=== PATIENT | female | born 1975 | race Caucasian/White ===

== ENCOUNTER 2016-09-24 16:15 | Emergency (ER) | payer SELFPAY ==
[~2016-09-24] VITALS: Ht 160 cm; Wt 64.0 kg
[~2016-09-24 16:15] MED LIST: NAPR500 PO; NAPR550 PO
[2016-09-24 16:16] VITALS: BP 144/82; PULSE 74; RESP 20; TEMP 97.4; O2SAT 100
--- NOTE | 2016-09-24 18:09 | PD ---
HPI Chief Complaint: Abdominal Pain Time Seen by Provider: 18:04 Travel History International Travel<30 days: No Contact w/Intl Traveler<30days: No Traveled to known affect area: No History of Present Illness HPI Patient is a 41-year-old female presenting to emergency for evaluation of abdominal pain. Patient rates her pain an 8 out of 10 and she also states she feels bloated and gassy. Patient is Serbian-speaking mainly, her is interpreting for her. Formal interpreter deaf services offered, will interpret at this time. Patient denies any nausea, vomiting, fever, chills. She does report loose stools. Patient is a past medical history of rectal bleeding. Patient's history also includes gallstones, upper and lower endoscopy. Patient was placed on omeprazole after the endoscopy last year, she ran out last month. This abdominal pain that she is experiencing today has been intermittent for the last year however it's worse over the last several days. PFSH Past Medical History GERD: Yes ?: Not LMP: 09/24/2016 : 4 Para: 4 Social History Alcohol Use: No Tobacco Use: No Substance Use: No Allergies-Medications (Allergen,Severity, Reaction): Coded Allergies: No Known Allergies (Verified , 09/24/16) Reported Meds & Prescriptions Reported Meds & Active Scripts Active Tylenol-Codeine #3 (Acetaminophen-Codeine) 300-30 mg Tab 1 Tab PO Q4H PRN Macrobid (Nitrofurantoin Monoh/Nitrofur Macro) 100 Mg Cap 100 Mg PO BID 10 Days Zofran Odt (Ondansetron Odt) 4 Mg Tab 4 Mg SL Q6HR PRN Review of Systems Except as stated in HPI: all other systems reviewed are Neg Gastrointestinal: Positive: Abdominal Pain, Loss of Appetite, Other (abdominal bloating and flatulence) Physical Exam Narrative GENERAL: Well-developed, well-nourished, alert female. Resting comfortably in no acute distress. SKIN: Warm and dry. HEAD: Atraumatic. Normocephalic. EYES: Pupils equal and round. No scleral icterus. No injection or drainage. ENT: No nasal bleeding or discharge. Mucous membranes pink and moist. NECK: Trachea midline. No JVD. CARDIOVASCULAR: Regular rate and rhythm. No murmur appreciated. RESPIRATORY: No accessory muscle use. Clear to auscultation. Breath sounds equal bilaterally. GASTROINTESTINAL: Abdomen soft, tender to palpation epigastrium and slightly in the right upper quadrant, nondistended. Hepatic and splenic margins not palpable. Positive bowel sounds, positive guarding. MUSCULOSKELETAL: No obvious deformities. No clubbing. No cyanosis. No edema. NEUROLOGICAL: Awake and alert. No obvious cranial nerve deficits. Motor grossly within normal limits. Normal speech. PSYCHIATRIC: Appropriate mood and affect; insight and judgment normal. Data Data Last Documented VS Orders Complete Blood Count With Diff (09/24/16 18:03) Comprehensive Metabolic Panel (09/24/16 18:03) Lipase (09/24/16 18:03) Urinalysis - C+S If Indicated (09/24/16 18:03) Us Abdomen Gallbladder (09/24/16 ) Urine Culture (09/24/16 18:14) Oxycodone-Acetamin 5-325 Mg (Percocet (09/24/16 22:30) MDM Medical Decision Making Medical Screen Exam Complete: Yes Emergency Medical Condition: Yes Interpretation(s) Vital Signs Date Time Temp Pulse Resp B/P Pulse Ox O2 Delivery O2 Flow Rate FiO2 09/24/16 16:16 97.4 74 20 144/82 100 Room Air Differential Diagnosis Gastritis versus peptic ulcer disease versus cholecystitis versus other Narrative Course Patient is a 41-year-old female presenting to emergency Department for evaluation of epigastric abdominal pain. This pain has been intermittent for over a year, patient has been on omeprazole since that time but ran out one month ago. Physical examination appears more consistent with a gastritis however due to patient's history of gallstones on ultrasound has been ordered. Labs are also pending. Workup initiated in triage, care patient will be transferred to a provider when a medical bed available. Scripts Acetaminophen-Codeine (Tylenol-Codeine #3)300-30 mg Tab1 Tab PO Q4H PRN (PAIN) # 10 TAB Ref 0 Prov:Shira Eisenberg DO 09/24/16 Nitrofurantoin Monohydrate Macrocrystals (Macrobid)100 Mg [id number] Mg PO BID 10 Days Ref 0 Prov:Shira Eisenberg DO 09/24/16 Ondansetron Odt (Zofran Odt)4 Mg Tab4 Mg SL Q6HR PRN (Nausea/Vomiting) #30 TAB Ref 0 Prov:Shira Eisenberg DO 09/24/16 Ashley Limon Sep 24, 2016 18:08
[2016-09-24 19:20] LABS: AUTOMATED NEUTROPHIL # 5.3 TH/MM3 (1.8-7.7); BASOPHIL % 0.4 % (0.0-2.0); EOSINOPHIL # 0.3 TH/MM3 (0-0.4); HEMATOCRIT 28.9 % (35.0-46.0); HEMO FLAGS AUTO DIFF; LYMPH % 24.1 % (9.0-44.0); MEAN CELL VOLUME 67.1 FL (80.0-100.0); MEAN CORPUSCULAR HEMOGLOBIN 20.9 PG (27.0-34.0); MEAN CORPUSCULAR HGB CONC 31.1 % (32.0-36.0); MONO % 6.2 % (0.0-8.0); NEUT % 65.3 % (16.0-70.0); PLATELET COUNT 297 TH/MM3 (150-450); WHITE BLOOD COUNT 8.2 TH/MM3 (4.0-11.0)
[2016-09-24 19:43] LABS: ANION GAP 7 MEQ/L (5-15); AST (GOT) 11 U/L (15-37); BICARBONATE 25.7 MEQ/L (21.0-32.0); BLOOD UREA NITROGEN 13 MG/DL (7-18); CHLORIDE 108 MEQ/L (98-107); GLOMERULAR FILTRATION RATE 105 ML/MIN (>89); POTASSIUM 3.6 MEQ/L (3.5-5.1); SODIUM (NA) 141 MEQ/L (136-145)
[2016-09-24 19:45] LABS: BLOOD, URINE MOD (NEG); COMMENT (UR) CULTURE INDICATED; CULTURE IF INDICATED CULTURE INDICATED; GLUCOSE,URINE NEG (NEG); KETONE, URINE 10 mg/dL (NEG); MUCUS URINE FEW /lpf (OCC); NITRITE,URINE NEG (NEG); PH, URINE 5.5 (5.0-8.5); PLATELET ESTIMATE SMEAR NORMAL (NORMAL); PLATELET MORPHOLOGY NORMAL (NORMAL); SCAN/DIFF AUTO DIFF CONFIRMED; SQUAMOUS EPITHELIAL CELL URINE 3 /hpf (0-5); URINE COLOR YELLOW (YELLW/STRAW)
[2016-09-24 19:47] LABS: ALKALINE PHOSPHATASE 50 U/L (45-117); ALT (GPT) 12 U/L (10-53); TOTAL BILIRUBIN ADULT 0.3 MG/DL (0.2-1.0)
[2016-09-24 20:49] VITALS: BP 137/63; PULSE 71; RESP 18; O2SAT 100
--- NOTE | 2016-09-24 20:58 | RADRPT ---
EXAM DATE/TIME: 09/24/2016 20:06 [facility] COMPARISON: No previous studies available for comparison. INDICATIONS : Right upper quadrant pain. MEDICAL HISTORY : Gastroesophageal reflux disease. Right upper quadrant pain. Rectal bleeding. Gallstones. SURGICAL HISTORY : Upper and lower endoscopy. ENCOUNTER: Initial ACUITY: 1 month PAIN SCORE: 8/10 LOCATION: Right upper quadrant MEASUREMENTS: LIVER: 14.0 cm length COMMON DUCT: 3 mm RIGHT KIDNEY: 10.3 x 5.0 x 5.1 cm FINDINGS: LIVER: Normal echotexture without focal lesion or ductal dilatation. COMMON DUCT: No intraluminal mass or stone visualized. GALLBLADDER: Contains gallbladder packed with stones stones, with extensive shadowing limiting evaluation of wall thickening or pericholecystic fluid. PANCREAS: The visualized portions are within normal limits. RIGHT KIDNEY: No evidence of hydronephrosis, stone, or mass. Simple right renal cyst measures 13 x 14 x 13 mm. CONCLUSION: 1. Gallbladder packed with stones causing extensive shadowing. 2. Simple right renal cyst measures 14 mm. Steve Gardner MD on September 24, 2016 at 20:50 Board Certified Radiologist. This report was verified electronically.
--- NOTE | 2016-09-24 21:06 | PD ---
Physical Exam Date Seen by Provider: Sep 24, 2016 Data Data Last Documented VS Vital Signs Date Time Temp Pulse Resp B/P Pulse Ox O2 Delivery O2 Flow Rate FiO2 09/24/16 20:49 71 18 137/63 100 Room Air 09/24/16 16:16 97.4 Orders Complete Blood Count With Diff (09/24/16 18:03) Comprehensive Metabolic Panel (09/24/16 18:03) Lipase (09/24/16 18:03) Urinalysis - C+S If Indicated (09/24/16 18:03) Us Abdomen Gallbladder (09/24/16 ) Urine Culture (09/24/16 18:14) Labs Laboratory Tests Test 09/24/16 18:14 White Blood Count 8.2 TH/MM3 Red Blood Count 4.30 MIL/MM3 Hemoglobin 9.0 GM/DL Hematocrit 28.9 % Mean Corpuscular Volume 67.1 FL Mean Corpuscular Hemoglobin 20.9 PG Mean Corpuscular Hemoglobin 31.1 % Concent Red Cell Distribution Width 20.0 % Platelet Count 297 TH/MM3 Mean Platelet Volume 8.1 FL Neutrophils (%) (Auto) 65.3 % Lymphocytes (%) (Auto) 24.1 % Monocytes (%) (Auto) 6.2 % Eosinophils (%) (Auto) 4.0 % Basophils (%) (Auto) 0.4 % Neutrophils # (Auto) 5.3 TH/MM3 Lymphocytes # (Auto) 2.0 TH/MM3 Monocytes # (Auto) 0.5 TH/MM3 Eosinophils # (Auto) 0.3 TH/MM3 Basophils # (Auto) 0.0 TH/MM3 CBC Comment AUTO DIFF Differential Comment AUTO DIFF CONFIRMED Platelet Estimate NORMAL Platelet Morphology Comment NORMAL Urine Color YELLOW Urine Turbidity CLEAR Urine pH 5.5 Urine Specific [place] 1.017 Urine Protein TRACE mg/dL Urine Glucose (UA) NEG mg/dL Urine Ketones 10 mg/dL Urine Occult Blood MOD Urine Nitrite NEG Urine Bilirubin NEG Urine Urobilinogen LESS THAN 2.0 MG/DL Urine Leukocyte Esterase LARGE Urine RBC /hpf Urine WBC 38 /hpf Urine Squamous Epithelial 3 /hpf Cells Urine Mucus FEW /lpf Microscopic Urinalysis Comment CULTURE INDICATED Sodium Level 141 MEQ/L Potassium Level 3.6 MEQ/L Chloride Level 108 MEQ/L Carbon Dioxide Level 25.7 MEQ/L Anion Gap 7 MEQ/L Blood Urea Nitrogen 13 MG/DL Creatinine 0.63 MG/DL Estimat Glomerular Filtration 105 ML/MIN Rate Random Glucose 83 MG/DL Calcium Level 8.2 MG/DL Total Bilirubin 0.3 MG/DL Aspartate Amino Transf 11 U/L (AST/SGOT) Alanine Aminotransferase 12 U/L (ALT/SGPT) Alkaline Phosphatase 50 U/L Total Protein 7.3 GM/DL Albumin 3.9 GM/DL Lipase 175 U/L [facility] Medical Record Reviewed: Yes Supervised Visit with DAVIAN: Yes Interpretation(s) Vital Signs Date Time Temp Pulse Resp B/P Pulse Ox O2 Delivery O2 Flow Rate FiO2 09/24/16 20:49 71 18 137/63 100 Room Air 09/24/16 16:16 97.4 74 20 144/82 100 Room Air CBC & BMP Diagram 09/24/16 18:14 Differential Diagnosis Acute cholecystitis, gastritis, gastric enteritis, acid reflux, GERD Narrative Course I, Dr. Eisenberg, have reviewed the advance practice practitioner's documentation and am in agreement, met with the patient face to face, made the diagnosis, and the medical decision making was done by me. *My assessment and Findings: Patient is a 41-year-old female who presents to emergency room with complaints of right upper quadrant abdominal pain. Patient reports that she has been having problems with her gallbladder for the past year, that she woke up this morning and had breakfast, reports that she began to have right upper quadrant abdominal pain. Patient denies any fevers or chills or nausea or vomiting at this time. She did admit to having 1 episode of diarrhea. Patient concerned that she may have acute cholecystitis. Patient reports that she is tolerating food at this time, she did eat an [place] while waiting to be seen in the emergency room. On evaluation, abdomen is mildly tender to the right upper quadrant. Vital signs are stable. Labs as well as ultrasound of gallbladder pending. WBC 8.2 Hemoglobin 9.0 Hematocrit 28.9 Platelets 297 Sodium 141 Chloride 108 Potassium 3.6 BUN 13 Creatinine 0.63 AST 11 ALT 12 Alkaline phosphatase 50 Lipase 175 UA: Positive for large leuk esterase, moderate blood, 38 white blood cells Right upper quadrant ultrasound with Gall Bladder Ultrasound 09/24/16 0000 Signed Impressions: Service Date/Time: Saturday, September 24, 2016 20:06 - CONCLUSION: 1. Gallbladder packed with stones causing extensive shadowing. 2. Simple right renal cyst measures 14 mm. Steve Gardner MD Last Impressions Gall Bladder Ultrasound 09/24/16 0000 Signed Impressions: Service Date/Time: Saturday, September 24, 2016 20:06 - CONCLUSION: 1. Gallbladder packed with stones causing extensive shadowing. 2. Simple right renal cyst measures 14 mm. Steve Gardner MD Patient with multiple gallstones, no evidence of gallbladder wall thickening. Patient with acute cholelithiasis, discussed need for follow-up with Gen. surgery as outpatient for elective cholecystectomy. Signs and symptoms of when to return to the emergency room was reviewed with patient in detail. Patient will return to emergency room as needed. A copy of patient's ultrasound was given to her at discharge Diagnosis Primary Impression: Cholelithiases Qualified Code: K80.20 - Calculus of gallbladder without cholecystitis without obstruction Additional Impressions: Anemia Qualified Code: D64.9 - Anemia, unspecified type UTI (urinary tract infection) Qualified Code: N30.01 - Acute cystitis with hematuria Referrals: Saad Licea MD Patient Instructions: General Instructions, Low Fat Diet (ED) Additional Instruction: Please bring your ultrasound report to your doctor's office visit for follow-up on all findings from today Please call general surgeon as soon as possible for earliest follow-up Please call your primary care doctor for follow-up Please return to the emergency room if symptoms progress or worsen or if you develop fevers or chills Scripts Nitrofurantoin Monohydrate Macrocrystals (Macrobid)100 Mg [id number] Mg PO BID 10 Days Ref 0 Prov:Shira Eisenberg DO 09/24/16 Ondansetron Odt (Zofran Odt)4 Mg Tab4 Mg SL Q6HR PRN (Nausea/Vomiting) #30 TAB Ref 0 Prov:Shira Eisenberg DO 09/24/16 Disposition: 01 DISCHARGE HOME Condition: Stable Shira Eisenberg DO Sep 24, 2016 21:06
[2016-09-24] MEDS ORDERED: ZOFR4TAB3 SL (21:43)
[2016-09-24] MEDS ORDERED: MACR100C2 PO (21:47)
[2016-09-24] MEDS ORDERED: TYLETAB34 PO (22:27)
[2016-09-24] MEDS ORDERED: oxyCODONE/ACETAMINOPHEN 5 MG/325 MG TAB PO ONE (22:30)
[2016-09-24 22:32] VITALS: BP 130/70
== END 2016-09-24 22:33 | disposition home or self-care (01) ==
LOC: NEPA 16:15
DX: K80.20 Calculus of gallbladder without cholecystitis without obstruction (principal); D64.9 Anemia, unspecified; N30.01 Acute cystitis with hematuria; R19.7 Diarrhea, unspecified; R14.0 Abdominal distension (gaseous); Z87.19 Personal history of other diseases of the digestive system
CPT/HCPCS: 76705; 80053; 81001; 83690; 85025; 87086